=== PATIENT | female | born 1980 | race Caucasian/White ===

== ENCOUNTER 2018-08-07 12:54 | Observation (INO) | payer BC ==
[~2018-08-07] VITALS: Ht 167.6 cm; Wt 97.3 kg
[2018-08-07] MEDS ORDERED: LORazepam 2 mg/ml vial IV ONE ×2 (13:10→13:30)
[2018-08-07] MEDS ORDERED: normal saline 1000ml 1,000 ML IV ONE ×2 (13:10→13:20)
[2018-08-07] MEDS ORDERED: adenosine 3mg/ml 2ml vial IV ONE ×2 (13:10→13:30)
[2018-08-07 13:20] LABS: BASOPHILS # (AUTO) 0.1 X10'3 (0-0.2); BASOPHILS % (AUTO) 0.6 % (0-1); EOSINOPHILS # (AUTO) 0.3 X10'3 (0-0.9); EOSINOPHILS % (AUTO) 2.4 % (0-6); HEMATOCRIT 42.8 % (35.0-45.0); HEMOGLOBIN 14.5 g/dl (12.0-16.0); LYMPHOCYTES # (AUTO) 2.7 X10'3 (1.1-4.8); LYMPHOCYTES % (AUTO) 24.8 % (21-51); MEAN CORPUSCULAR HEMOGLOBIN 32.1 PG (27.0-31.0); MEAN CORPUSCULAR HGB CONC 33.9 % (33.0-36.5); MEAN CORPUSCULAR VOLUME 94.8 FL (78-98); MEAN PLATELET VOLUME 6.9 FL (7.4-10.4); MONOCYTES # (AUTO) 0.5 X10'3 (0-0.9); MONOCYTES % (AUTO) 4.2 % (2-12); NEUTROPHILS # (AUTO) 7.5 X10'3 (1.8-7.7); PLATELET COUNT 414 X10'3 (140-440); RED BLOOD COUNT 4.52 X10'6 (4.20-5.60); RED CELL DISTRIBUTION WIDTH 13.1 % (11.5-14.5); WHITE BLOOD COUNT 11.1 X10'3 (4.5-11.0)
[2018-08-07] MEDS ORDERED: aspirin 325mg tablet PO ONE (13:20)
[2018-08-07] MEDS ORDERED: morphine 4 MG/ML inj SYRINge IV ONE (13:20)
[2018-08-07] MEDS ORDERED: ondansetron/PF 4mg/2ml inj IV ONE (13:30)
[2018-08-07 13:36] LABS: ALANINE AMINOTRANSFERASE 20 U/L (12-78); ALBUMIN 3.9 G/DL (3.4-5.0); ALKALINE PHOSPHATASE 71 IU/L (46-116); ANION GAP 14 (8-16); ASPARTATE AMINO TRANSFERASE 18 U/L (10-37); BILIRUBIN,TOTAL 0.4 MG/DL (0.1-1.0); BLOOD UREA NITROGEN 11 MG/DL (7-18); BUN/CREATININE RATIO 11.2 (6.6-38.0); CALCIUM 8.7 MG/DL (8.5-10.1); CHLORIDE 99 MMOL/L (99-107); CREATININE 0.98 MG/DL (0.40-0.90); GLUCOSE 162 MG/DL (70-104); MAGNESIUM 1.5 MG/DL (1.5-2.4); POTASSIUM 3.5 MMOL/L (3.5-5.1); SODIUM 135 MMOL/L (135-145); TOTAL CARBON DIOXIDE 22.5 MMOL/L (24-32); TOTAL PROTEIN 7.9 G/DL (6.4-8.2); eGFR 64 ML/MIN
[2018-08-07] MEDS ORDERED: famotidine/PF 10 mg/ml inj IV ONE (13:40)
[2018-08-07] MEDS ORDERED: LIDOcaine Viscous 15ml cup PO ONE (13:40)
[2018-08-07] MEDS ORDERED: mag hydrox/Alum hydrox/simeth 30ml oral suspension PO ONE (13:40)
[2018-08-07] MEDS: magnesium 1gm/100ml D5W IVPB 100 ML IV SCH ×2 (13:42→15:00)
[2018-08-07] MEDS ORDERED: ketorolac trometh. 30mg/ml inj. IV ONE (15:20)
[2018-08-07 15:41] LABS: URINE HCG NEGATIVE (NEG)
[2018-08-07 15:42] LABS: CLARITY,URINE CLEAR (Clear); COLOR,URINE STRAW (Yellow); GLUCOSE, URINE NEGATIVE (Neg); KETONES,URINE TRACE mg/dl (Neg); LEUKOCYTE ESTERASE ,URINE NEGATIVE (Neg); NITRITES, URINE NEGATIVE (Neg); OCCULT BLOOD,URINE TRACE-LYSED (Neg); PROTEIN,URINE NEGATIVE (Neg); UA COLLECTION TYPE CLN CATCH MIDSTREAM; UROBILINOGEN,URINE 0.2 E.U/dL (0.2-1.0)
[2018-08-07 15:50] LABS: BACTERIA,URINE NONE SEEN /HPF (Neg); MUCUS STRANDS NONE SEEN /LPF (Neg); RBC,URINE 0-2 /HPF (0-2); SQUAMOUS EPITHELIAL CELL,UR FEW /LPF (FEW); WBC,URINE 0-4 /HPF (0-4)
[2018-08-07] MEDS ORDERED: heparin 25,000 UNIT/250ml bag 250 ML IV SCH ×3 (17:23→18:15)
[2018-08-07] MEDS ORDERED: heparin 10,000 units/1 ML INJ IV ONE ×2 (17:25→18:15)
[2018-08-07] MEDS ORDERED: heparin 10,000 units/1 ML INJ IV PRN ×2 (17:25→18:15)
[2018-08-07] MEDS ORDERED: magnesium hydroxide 30ml (MOM) UD suspension PO PRN (18:15)
[2018-08-07] MEDS ORDERED: magnesium Cl slow-release 64mg tablet PO PRN (18:15)
[2018-08-07] MEDS ORDERED: mag hydrox/Alum hydrox/simeth 30ml oral suspension PO PRN (18:15)
[2018-08-07] MEDS ORDERED: potassium Cl 20 mEq SR tablet PO PRN ×2 (18:15)
[2018-08-07] MEDS ORDERED: HYDROcodone/acetaminophen 10/325mg tab PO PRN (18:15)
[2018-08-07] MEDS ORDERED: morphine 2 MG/ML inj. syringe IV PRN ×2 (18:15)
[2018-08-07] MEDS: normal saline 1000ml 1,000 ML IV SCH (18:15)
[2018-08-07] MEDS ORDERED: potassium Cl 40MEQ/NS 500ml 500 ML IV PRN ×2 (18:15)
[2018-08-07] MEDS ORDERED: magnesium 4gm in 100ml NS 100 ML IV PRN (18:15)
[2018-08-07] MEDS ORDERED: magnesium 1gm/100ml D5W IVPB 100 ML IV PRN (18:15)
[2018-08-07] MEDS ORDERED: acetaminophen 325mg tablet PO PRN ×2 (18:15)
[2018-08-07] MEDS: ondansetron/PF 4mg/2ml inj IV PRN (18:53)
[2018-08-07 19:09] LABS: BASOPHILS % (AUTO) 0.2 % (0-1); EOSINOPHILS # (AUTO) 0.1 X10'3 (0-0.9); EOSINOPHILS % (AUTO) 1.6 % (0-6); HEMATOCRIT 36.2 % (35.0-45.0); HEMOGLOBIN 12.3 g/dl (12.0-16.0); LYMPHOCYTES % (AUTO) 24.9 % (21-51); MEAN CORPUSCULAR HEMOGLOBIN 32.3 PG (27.0-31.0); MEAN CORPUSCULAR VOLUME 94.9 FL (78-98); MONOCYTES # (AUTO) 0.4 X10'3 (0-0.9); MONOCYTES % (AUTO) 4.3 % (2-12); NEUTROPHILS # (AUTO) 5.6 X10'3 (1.8-7.7); PLATELET COUNT 243 X10'3 (140-440); PROTHROMBIN TIME 10.5 SECONDS (9.0-12.0); RED BLOOD COUNT 3.81 X10'6 (4.20-5.60); RED CELL DISTRIBUTION WIDTH 13.4 % (11.5-14.5); WHITE BLOOD COUNT 8.1 X10'3 (4.5-11.0)
[2018-08-07 19:10] LABS: PARTIAL THROMBOPLASTIN TIME 25 SECONDS (22-32)
[2018-08-07] MEDS: magnesium oxide 400mg tablet PO SCH (19:56)
[2018-08-07 20:16] LABS: PHOSPHORUS 2.6 MG/DL (2.3-4.5)
[2018-08-07 20:45] VITALS: BP 137/83
[2018-08-07] MEDS: HYDROcodone/acetaminophen 5mg/325mg tablet PO PRN (20:48)
[2018-08-07] MEDS ORDERED: temazepam 15mg capsule PO PRN (21:00)
[2018-08-07] MEDS: K and/or MAG REPLACEMENT MC SCH (22:53)
[2018-08-07 23:00] VITALS: BP 138/76
[2018-08-08 00:58] LABS: BASOPHILS % (AUTO) 0.9 % (0-1); EOSINOPHILS # (AUTO) 0.1 X10'3 (0-0.9); EOSINOPHILS % (AUTO) 1.3 % (0-6); HEMATOCRIT 32.8 % (35.0-45.0); HEMOGLOBIN 11.5 g/dl (12.0-16.0); LYMPHOCYTES # (AUTO) 2.3 X10'3 (1.1-4.8); MEAN CORPUSCULAR HEMOGLOBIN 33.2 PG (27.0-31.0); MEAN CORPUSCULAR VOLUME 94.9 FL (78-98); MEAN PLATELET VOLUME 6.8 FL (7.4-10.4); MONOCYTES # (AUTO) 0.3 X10'3 (0-0.9); MONOCYTES % (AUTO) 4.8 % (2-12); NEUTROPHILS # (AUTO) 2.8 X10'3 (1.8-7.7); PLATELET COUNT 200 X10'3 (140-440); RED BLOOD COUNT 3.46 X10'6 (4.20-5.60); RED CELL DISTRIBUTION WIDTH 12.2 % (11.5-14.5); WHITE BLOOD COUNT 5.5 X10'3 (4.5-11.0)
[2018-08-08 01:09] LABS: ALBUMIN 2.6 G/DL (3.4-5.0); ANION GAP 7 (8-16); BLOOD UREA NITROGEN 10 MG/DL (7-18); CALCIUM 7.4 MG/DL (8.5-10.1); CHLORIDE 105 MMOL/L (99-107); GLUCOSE 93 MG/DL (70-104); PHOSPHORUS 3.1 MG/DL (2.3-4.5); POTASSIUM 3.4 MMOL/L (3.5-5.1); SODIUM 139 MMOL/L (135-145); TOTAL CARBON DIOXIDE 27.5 MMOL/L (24-32); eGFR 62 ML/MIN
[2018-08-08 01:10] LABS: CHOL/HDL RATIO 1.8 (0.00-4.99); CHOLESTEROL 158 MG/DL (0-200); HDL CHOLESTEROL 88 MG/DL (35-60); LDL CHOLESTEROL 65 MG/DL (50-100); TRIGLYCERIDES 94 MG/DL (20-135)
[2018-08-08] MEDS: potassium Cl 20 mEq SR tablet PO SCH ×2 (02:21→07:50)
[2018-08-08 03:00] VITALS: BP 118/75
[2018-08-08] MEDS: HYDROcodone/acetaminophen 5mg/325mg tablet PO PRN ×2 (04:07→10:11)
[2018-08-08 06:00] VITALS: BP 118/68
[2018-08-08] MEDS ORDERED: LEVO112T5 PO (07:47)
[2018-08-08] MEDS ORDERED: GABA-532 PO (07:47)
[2018-08-08] MEDS ORDERED: POTA8TAB8 PO (07:47)
[2018-08-08] MEDS ORDERED: CHOL100046 PO (07:47)
[2018-08-08] MEDS ORDERED: CYCL-1 PO (07:47)
[2018-08-08] MEDS ORDERED: CRAN200C PO (07:47)
[2018-08-08] MEDS: magnesium oxide 400mg tablet PO SCH (07:50)
[2018-08-08] MEDS: ondansetron/PF 4mg/2ml inj IV PRN (07:51)
[2018-08-08] MEDS ORDERED: ALPR-624 PO (07:57)
[2018-08-08] MEDS: K and/or MAG REPLACEMENT MC SCH (08:00)
[2018-08-08] MEDS: normal saline 1000ml 1,000 ML IV SCH ×2 (08:42→10:08)
[2018-08-08] MEDS ORDERED: POTA99TA21 PO (09:41)
[2018-08-08] MEDS ORDERED: pneumococcal 23-VAL P-sac vacc 25 mcg/0.5ml vial IMVAC ONE (10:00)
[2018-08-08 11:00] VITALS: BP 142/88
== END 2018-08-08 11:00 | disposition home or self-care (01) ==
LOC: ER 12:54 → ED HOLD 18:15 → PCU 3S 20:45
PROVIDERS: ADMIT Family Medicine; ATTEND Family Medicine
DX: I47.1 Supraventricular tachycardia (principal); R19.7 Diarrhea, unspecified; G89.29 Other chronic pain; F41.1 Generalized anxiety disorder; E87.6 Hypokalemia; E89.0 Postprocedural hypothyroidism; J45.909 Unspecified asthma, uncomplicated; Z90.721 Acquired absence of ovaries, unilateral; Z87.442 Personal history of urinary calculi
CPT/HCPCS: 36415; 71045; 80048; 80053; 80061; 81001; 81025; 83735; 84100; 84439; 84443; 84484; 85025; 85610; 85730; 87070; 93005; 93306; 96365; 96366; 96367; 96375; 96376; 99291; G0378; J0153; J1644; J1885; J2060; J2270; J2405; J3490; J7030; Q2037; 99285

== ENCOUNTER 2018-08-19 18:43 | Emergency (ER) | payer BC ==
[~2018-08-19] VITALS: Ht 167.6 cm; Wt 98.8 kg
[~2018-08-19 18:43] MED LIST: ALPR-624 PO; CHOL100046 PO; CRAN200C PO; CYCL-1 PO; GABA-532 PO; LEVO112T5 PO; POTA99TA21 PO
[2018-08-19 20:20] VITALS: BP 148/92
== END 2018-08-19 20:23 | disposition home or self-care (01) ==
LOC: ER 18:44
DX: I47.1 Supraventricular tachycardia (principal); E03.9 Hypothyroidism, unspecified; Z88.8 Allergy status to other drugs, medicaments and biological substances; Z79.899 Other long term (current) drug therapy
CPT/HCPCS: 71045; 93005; 99284

== ENCOUNTER 2018-08-22 05:45 | Emergency (ER) | payer BC ==
[~2018-08-22] VITALS: Ht 167.6 cm; Wt 101.2 kg
[2018-08-22 06:37] LABS: BASOPHILS # (AUTO) 0.1 X10'3 (0-0.2); BASOPHILS % (AUTO) 0.9 % (0-1); EOSINOPHILS # (AUTO) 0.2 X10'3 (0-0.9); EOSINOPHILS % (AUTO) 3.1 % (0-6); HEMATOCRIT 42.1 % (35.0-45.0); HEMOGLOBIN 14.2 g/dl (12.0-16.0); LYMPHOCYTES # (AUTO) 2.6 X10'3 (1.1-4.8); LYMPHOCYTES % (AUTO) 36.1 % (21-51); MEAN CORPUSCULAR HEMOGLOBIN 31.9 PG (27.0-31.0); MEAN CORPUSCULAR HGB CONC 33.7 % (33.0-36.5); MEAN CORPUSCULAR VOLUME 94.7 FL (78-98); MEAN PLATELET VOLUME 6.8 FL (7.4-10.4); MONOCYTES # (AUTO) 0.4 X10'3 (0-0.9); MONOCYTES % (AUTO) 5.6 % (2-12); NEUTROPHILS # (AUTO) 3.8 X10'3 (1.8-7.7); NEUTROPHILS % (AUTO) 54.3 % (42-75); PLATELET COUNT 306 X10'3 (140-440); RED BLOOD COUNT 4.45 X10'6 (4.20-5.60); WHITE BLOOD COUNT 7.1 X10'3 (4.5-11.0)
[2018-08-22] MEDS ORDERED: adenosine 3mg/ml 2ml vial IV ONE ×2 (06:40)
[2018-08-22 06:53] LABS: ALANINE AMINOTRANSFERASE 34 U/L (12-78); ALBUMIN 3.3 G/DL (3.4-5.0); ALBUMIN/GLOBULIN RATIO 0.8 (1.1-1.5); ALKALINE PHOSPHATASE 70 IU/L (46-116); ANION GAP 12 (8-16); ASPARTATE AMINO TRANSFERASE 29 U/L (10-37); BILIRUBIN,TOTAL 0.4 MG/DL (0.1-1.0); BLOOD UREA NITROGEN 14 MG/DL (7-18); BUN/CREATININE RATIO 18.9 (6.6-38.0); CALCIUM 8.3 MG/DL (8.5-10.1); CHLORIDE 103 MMOL/L (99-107); CREATININE 0.74 MG/DL (0.40-0.90); GLUCOSE 96 MG/DL (70-104); POTASSIUM 3.6 MMOL/L (3.5-5.1); SODIUM 137 MMOL/L (135-145); TOTAL CARBON DIOXIDE 21.7 MMOL/L (24-32); TOTAL PROTEIN 7.7 G/DL (6.4-8.2); eGFR 88 ML/MIN
[2018-08-22 06:57] LABS: PARTIAL THROMBOPLASTIN TIME 24 SECONDS (22-32); PROTHROMBIN TIME 10.1 SECONDS (9.0-12.0)
[2018-08-22 07:43] VITALS: BP 139/81
== END 2018-08-22 07:44 | disposition home or self-care (01) ==
LOC: ER 05:46
DX: I47.1 Supraventricular tachycardia (principal); E03.9 Hypothyroidism, unspecified; Z88.8 Allergy status to other drugs, medicaments and biological substances; Z79.899 Other long term (current) drug therapy
CPT/HCPCS: 36415; 71045; 80053; 84484; 85025; 85610; 85730; 92960; 93005; 99285; J0153

== ENCOUNTER 2023-08-13 22:19 | Emergency (ER) | payer BC ==
[~2023-08-13] VITALS: Ht 167.6 cm; Wt 82.7 kg
[~2023-08-13 22:19] MED LIST changes: -POTA99TA21 PO; +POTA99TA26 PO
[2023-08-13 22:31] VITALS: TEMP 97.1
[2023-08-13 23:08] LABS: BASOPHILS # (AUTO) 0.1 X10'3 (0-0.2); BASOPHILS % (AUTO) 0.9 % (0-1); EOSINOPHILS # (AUTO) 0.1 X10'3 (0-0.9); EOSINOPHILS % (AUTO) 2.3 % (0-6); HEMATOCRIT 40.4 % (35.0-45.0); HEMOGLOBIN 13.9 g/dl (12.0-16.0); LYMPHOCYTES # (AUTO) 1.6 X10'3 (1.1-4.8); MEAN CORPUSCULAR HGB CONC 34.4 g/dL (33.0-36.5); MEAN CORPUSCULAR VOLUME 93.1 FL (78-98); MEAN PLATELET VOLUME 6.5 FL (7.4-10.4); MONOCYTES # (AUTO) 0.4 X10'3 (0-0.9); MONOCYTES % (AUTO) 6.4 % (2-12); NEUTROPHILS # (AUTO) 3.5 X10'3 (1.8-7.7); NEUTROPHILS % (AUTO) 62.4 % (42-75); PLATELET COUNT 244 X10'3 (140-440); RED BLOOD COUNT 4.34 X10'6 (4.20-5.60); RED CELL DISTRIBUTION WIDTH 13.2 % (11.5-14.5); WHITE BLOOD COUNT 5.6 X10'3 (4.5-11.0)
[2023-08-13] MEDS ORDERED: ondansetron/PF 4mg/2ml inj IV ONE (23:10)
[2023-08-13] MEDS ORDERED: ketorolac trometh. 30mg/ml inj. IV ONE (23:10)
[2023-08-13 23:26] VITALS: RESP 18
[2023-08-13 23:31] LABS: ALANINE AMINOTRANSFERASE 20 U/L (12-78); ALBUMIN 3.7 G/DL (3.4-5.0); ALBUMIN/GLOBULIN RATIO 0.8 (1.1-1.5); ALKALINE PHOSPHATASE 63 IU/L (46-116); ANION GAP 11 (8-16); ASPARTATE AMINO TRANSFERASE 15 U/L (10-37); BILIRUBIN,TOTAL 0.3 MG/DL (0.1-1.0); BLOOD UREA NITROGEN 5 MG/DL (7-18); BUN/CREATININE RATIO 5.7 (10.0-20.0); CALCIUM 9.2 MG/DL (8.5-10.1); CHLORIDE 104 MMOL/L (99-107); CREATININE 0.88 MG/DL (0.40-0.90); GLUCOSE 98 MG/DL (70-104); LIPASE 30 U/L (16-77); SODIUM 140 MMOL/L (135-145); TOTAL CARBON DIOXIDE 25.5 MMOL/L (24-32); TOTAL PROTEIN 8.2 G/DL (6.4-8.2); eCRCL 78 ML/MIN; eGFR 70 ML/MIN
[2023-08-13 23:34] LABS: POTASSIUM 2.9 MMOL/L (3.5-5.1)
[2023-08-13] MEDS ORDERED: POTASSIUM BICARB 20meq eff tab 20 MEQ TABLET.EFF PO ONE (23:35)
[2023-08-14] MEDS ORDERED: normal saline 1000ml 1,000 ML IV ONE (00:05)
[2023-08-14] MEDS ORDERED: proCHLORperazine 10 MG/2 ml inj IV ONE (01:45)
[2023-08-14 01:55] LABS: URINE HCG NEGATIVE (NEG)
[2023-08-14] MEDS ORDERED: HYDROcodone/acetaminophen 5mg/325mg tablet PO ONE (02:00)
[2023-08-14 02:09] LABS: BILIRUBIN,URINE NEGATIVE (Neg); CLARITY,URINE CLOUDY (Clear); COLOR,URINE RED (Yellow); GLUCOSE, URINE NEGATIVE (Neg); KETONES,URINE NEGATIVE (Neg); LEUKOCYTE ESTERASE ,URINE LARGE (Neg); NITRITES, URINE NEGATIVE (Neg); OCCULT BLOOD,URINE LARGE (Neg); PH,URINE 7.5 (4.8-8.0); PROTEIN,URINE 30 mg/dl (Neg); UROBILINOGEN,URINE 0.2 E.U/dL (0.2-1.0)
[2023-08-14 02:11] LABS: UA COLLECTION TYPE CLN CATCH MIDSTREAM
[2023-08-14 02:17] LABS: WBC,URINE 30-50 /HPF (0-4)
[2023-08-14 02:18] LABS: BACTERIA,URINE FEW /HPF (Neg); MUCUS STRANDS FEW /LPF (Neg); RBC,URINE 20-50 /HPF (0-2); SQUAMOUS EPITHELIAL CELL,UR FEW /LPF (FEW)
[2023-08-14] MEDS ORDERED: CefTRIAXone 2gm/D5W 50ml BAG 50 ML IV ONE (03:25)
[2023-08-14] MEDS ORDERED: CIPR-202 PO (03:53)
[2023-08-14] MEDS ORDERED: ONDA8TAB13 PO (03:53)
[2023-08-14] MEDS ORDERED: HYDR-3965 PO (03:53)
[2023-08-14] MEDS ORDERED: POTA-207 PO (03:53)
[2023-08-14 04:22] VITALS: BP 96/56; PULSE 83; O2SAT 97
== END 2023-08-14 04:25 | disposition home or self-care (01) ==
LOC: ER 22:20
DX: N39.0 Urinary tract infection, site not specified (principal); R11.2 Nausea with vomiting, unspecified; E87.6 Hypokalemia; R10.9 Unspecified abdominal pain; E03.9 Hypothyroidism, unspecified; Z98.890 Other specified postprocedural states; Z88.6 Allergy status to analgesic agent; Z88.8 Allergy status to other drugs, medicaments and biological substances; Z91.040 Latex allergy status; Z79.899 Other long term (current) drug therapy
CPT/HCPCS: 36415; 76770; 76830; 76856; 80053; 81001; 81025; 83690; 85025; 87088; 93976; 96361; 96365; 96375; 99285; J0696; J0780; J1885; J2405; J7030